=== PATIENT | female | born 1990 | race African-American/Black ===

== ENCOUNTER 2020-06-01 10:48 | Inpatient (IN) ==
[2020-06-01] MEDS ORDERED: LACTATED RINGERS 500 ML IV PRN (11:20)
[2020-06-01] MEDS ORDERED: ACETAMINOPHEN 325 MG TABLET PO PRN ×2 (11:20→15:00)
[2020-06-01] MEDS ORDERED: ONDANSETRON 4 MG/2 ML VIAL IV PRN ×2 (11:20→15:00)
[2020-06-01] MEDS ORDERED: LACTATED RINGERS 1,000 ML IV SCH ×3 (11:30→19:00)
[2020-06-01 11:36] LABS: Basophils % 0.3 % (0.0-0.8); Eosinophils % 0.7 % (0.00-10.9); Hematocrit 37.5 VOL% (35.7-47.0); Hemoglobin 11.9 GM/DL (12.0-16.0); Immature Granulocytes % 0.3 %; Immature Granulocytes Absolute 0.02 #; Lymphocytes # 1.5 10*3/uL (1.4-4.0); Lymphocytes % 25.8 % (21.3-54.2); Mean Corpuscular HGB Conc 31.7 GM/DL (32-36); Mean Corpuscular Volume 76.5 FL (87-102); Mean Platelet Volume 10.8 FL (9.6-12.0); Monocytes % 10.6 % (1.7-12.7); Neutrophils % 62.3 % (38.7-73.9); Platelet Count 266 T/CUMM (130-400); Red Cell Distribution Width 16.4 % (9.3-17.3); White Blood Count 5.8 T/CUMM (4-12)
[2020-06-01 12:35] LABS: Alanine Aminotransferase 21 U/L (13-56); Albumin 2.7 G/DL (3.4-5.0); Alkaline Phosphatase 175 U/L (45-117); Aspartate Amino Transferase 28 U/L (0-37); Bilirubin,Total < 0.39 MG/DL (0.2-1.0); Blood Urea Nitrogen 4 MG/DL (7-18); Calcium 9.2 MG/DL (8.5-10.1); Carbon Dioxide 22 MMOL/L (21-32); Estimated Glom Filtration Rate 175 ML/MIN; Glucose 66 MG/DL (74-106); Osmolality,Calculated 271.5 MOS/KG (273-304); Potassium 3.9 MMOL/L (3.5-5.1); Sodium 139 MMOL/L (136-145); Total Protein 6.3 G/DL (6.4-8.2)
[2020-06-01] MEDS ORDERED: miSOPROStoL 200 MCG TABLET ONE (12:45)
[2020-06-01] MEDS ORDERED: TRANEXAMIC ACID 1,000 MG/10 ML VIAL ONE (12:45)
[2020-06-01] MEDS ORDERED: METHYLERGONOVINE 0.2 MG/1 ML AMP ONE (12:46)
[2020-06-01] MEDS ORDERED: OXYTOCIN 10 UNIT/ML VIAL ONE (12:46)
[2020-06-01] MEDS ORDERED: CARBOPROST TROMETHAMINE 250 MCG/ML AMP IM ONE (12:46)
[2020-06-01] MEDS ORDERED: ceFAZolin 2,000 MG in PREMIX 1 EACH IV ONE ×2 (12:49→14:00)
[2020-06-01] MEDS ORDERED: FAMOTIDINE 20 MG/2 ML VIAL IV ONE (12:50)
[2020-06-01] MEDS ORDERED: CITRIC ACID/SODIUM CITRATE 30 ML UDCUP PO ONE ×2 (12:50→14:00)
[2020-06-01] MEDS ORDERED: OXYTOCIN/LR 30 UNIT/1,000 ML BAG IV ONE ×3 (12:50→14:00)
[2020-06-01] MEDS ORDERED: PHENYLEPHRINE 1 MG/10 ML SYRINGE IV ONE (12:57)
[2020-06-01] MEDS ORDERED: ONDANSETRON 4 MG/2 ML VIAL ONE ×2 (12:57)
[2020-06-01] MEDS ORDERED: BUPIVACAINE SPINAL 0.75% 2 ML AMP SPINAL ONE (12:58)
[2020-06-01] MEDS ORDERED: SODIUM CHLORIDE 0.9% 0 ML IV ONE (13:03)
[2020-06-01] MEDS ORDERED: OXYTOCIN/LR 30 UNIT/1,000 ML BAG IV STA (13:32)
[2020-06-01] MEDS ORDERED: OXYTOCIN 10 UNIT/ML VIAL IM ONE (14:00)
[2020-06-01] MEDS ORDERED: ePHEDrine 50 MG/ML VIAL ONE (14:07)
[2020-06-01 14:33] LABS: Cord Arterial Blood HCO3 17.7 MMOL/L
[2020-06-01 14:35] LABS: Cord Venous Blood HCO3 19.3 MMOL/L; Cord Venous Blood PCO2 50.4 MMHG; Cord Venous Blood PO2 19.2
[2020-06-01 14:38] LABS: Bacteria,Urine Occasional /HPF (Few); Bilirubin,Urine Negative (Negative); Blood, Urine Negative (Negative); Glucose,Urine (UA) Negative (Negative); Hyaline Casts,Urine 1 /LPF (0-3); Ketones,Urine 80 mg/dL (Negative); Mucus,Urine Occasional /LPF (Occasional); Nitrite,Urine Negative (Negative); Protein,Urine Negative; Squamous Epithelial Cell,Urine Occasional /HPF (0-10); Urine Appearance CLEAR (Clear); Urine Color Yellow (Yellow); Urine Specific Gravity 1.015 (1.001-1.035); Urine Urobilinogen < 2.0 EU/DL (0.2-1.0); WBC,Urine 1 /HPF (0-6)
[2020-06-01] MEDS ORDERED: RHO(D) IMMUNE GLOBULIN 300 MCG SYRINGE IM ONE (15:00)
[2020-06-01] MEDS ORDERED: OXYTOCIN/LR 20 UNIT/1,000 ML BAG IV ONE (15:00)
[2020-06-01] MEDS ORDERED: SIMETHICONE CHEW 80 MG TABLET PO PRN (15:00)
[2020-06-01] MEDS ORDERED: ACETAMINOPHEN 500 MG TABLET PO SCH (18:00)
[2020-06-01] MEDS ORDERED: KETOROLAC 30 MG/1 ML VIAL IV PRN (18:00)
[2020-06-01] MEDS: KETOROLAC 30 MG/1 ML VIAL IV SCH (18:36)
[2020-06-01] MEDS: DOCUSATE SODIUM 100 MG CAPSULE PO SCH (21:00)
[2020-06-01 22:37] LABS: Basophils % 0.2 % (0.0-0.8); Eosinophils % 0.4 % (0.00-10.9); Hematocrit 33.8 VOL% (35.7-47.0); Hemoglobin 10.5 GM/DL (12.0-16.0); Immature Granulocytes % 0.4 %; Immature Granulocytes Absolute 0.03 #; Lymphocytes # 1.6 10*3/uL (1.4-4.0); Lymphocytes % 20.2 % (21.3-54.2); Mean Corpuscular HGB Conc 31.1 GM/DL (32-36); Mean Corpuscular Volume 78.4 FL (87-102); Mean Platelet Volume 11.2 FL (9.6-12.0); Neutrophils % 69.8 % (38.7-73.9); Platelet Count 206 T/CUMM (130-400); Red Blood Count 4.31 MC/CUMM (3.8-5.5); Red Cell Distribution Width 16.5 % (9.3-17.3); White Blood Count 8.1 T/CUMM (4-12)
[2020-06-02] MEDS: KETOROLAC 30 MG/1 ML VIAL IV SCH ×2 (00:05→06:28)
[2020-06-02 05:15] LABS: Basophils % 0.3 % (0.0-0.8); Eosinophils # 0.1 10*3/uL (0.0-0.87); Eosinophils % 0.7 % (0.00-10.9); Hematocrit 33.9 VOL% (35.7-47.0); Hemoglobin 10.5 GM/DL (12.0-16.0); Immature Granulocytes % 0.4 %; Immature Granulocytes Absolute 0.03 #; Lymphocytes # 1.7 10*3/uL (1.4-4.0); Lymphocytes % 23.8 % (21.3-54.2); Mean Corpuscular Volume 78.3 FL (87-102); Mean Platelet Volume 11.7 FL (9.6-12.0); Monocytes % 14.9 % (1.7-12.7); Neutrophils % 59.9 % (38.7-73.9); Platelet Count 201 T/CUMM (130-400); Red Blood Count 4.33 MC/CUMM (3.8-5.5); Red Cell Distribution Width 16.4 % (9.3-17.3); White Blood Count 7.2 T/CUMM (4-12)
[2020-06-02] MEDS: MULTIVITAMIN (PRENATAL) TABLET PO SCH (09:36)
[2020-06-02] MEDS: DOCUSATE SODIUM 100 MG CAPSULE PO SCH ×2 (09:36→21:14)
[2020-06-02] MEDS: METOCLOPRAMIDE 10 MG TABLET PO SCH ×2 (09:36→18:24)
[2020-06-02] MEDS ORDERED: RHO(D) IMMUNE GLOBULIN 300 MCG SYRINGE IM ONE (11:30)
[2020-06-02] MEDS: IBUPROFEN 800 MG TABLET PO PRN (14:47)
[2020-06-02] MEDS: MAGNESIUM HYDROXIDE SUSP 30 ML UDCUP PO PRN ×2 (15:40→21:14)
[2020-06-03] MEDS: METOCLOPRAMIDE 10 MG TABLET PO SCH ×2 (01:21→08:35)
[2020-06-03] MEDS: IBUPROFEN 800 MG TABLET PO PRN ×2 (01:21→11:04)
[2020-06-03 07:13] VITALS: BP 115/55
[2020-06-03] MEDS: DOCUSATE SODIUM 100 MG CAPSULE PO SCH (08:34)
[2020-06-03] MEDS: MULTIVITAMIN (PRENATAL) TABLET PO SCH (08:35)
== END 2020-06-03 13:30 | disposition home or self-care (01) | DRG 540 ==
LOC: N.LD 10:48 → N.OB 21:45
PROVIDERS: ADMIT Obstetrics & Gynecology; ATTEND Obstetrics & Gynecology
PROC: LDCSECT (ICD-10-PCS; 2020-06-01 13:45)